=== PATIENT | male | born 1960 | race Hispanic/Latino ===

== ENCOUNTER 2018-03-09 10:56 | Emergency (ER) | payer MEDICAID ==
[2018-03-09 10:56] VITALS: BMI 21.1
[2018-03-09 11:11] VITALS: BP 144/83; PULSE 73; RESP 16; TEMP 97; O2SAT 98
--- NOTE | 2018-03-09 11:37 | ED PDOC ---
HPI: Influenza Time Seen by Provider: 03/09/18 11:14 Chief Complaint: Cough, Cold, Congestion History Per: Patient Additional complaint(s):: Pt. states for the past month he's had a persistent cough (non-productive). He was dx with pneumonia and dc'd from ED on 02/28/2018. States he was prescribed antibiotics but he did not take them as he lost the prescription. Denies chest pain, SOB, hemoptysis, sick contacts, recent travel, fever. Past Medical History Reviewed: Historical Data, Nursing Documentation, Vital Signs Vital Signs: Last Vital Signs Temp 97 F L 03/09/18 11:08 Pulse 73 03/09/18 11:08 Resp 16 03/09/18 11:08 BP 144/83 03/09/18 11:08 Pulse Ox 98 03/09/18 11:08 - Medical History PMH: Depression, Hypothyroidism, Pneumonia, Schizophrenia Denies: Diabetes, Hepatitis, HIV, HTN, Chronic Kidney Disease, Seizures, Sexually Transmitted Disease - Family History Family History: States: No Known Family Hx - Home Medications Home Medications: Ambulatory Orders Medication Instructions Recorded LORazepam [Ativan] 1 mg PO BID #28 tab 07/02/16 Levothyroxine [Synthroid] 25 mcg PO DAILY@0630 #14 tab 07/02/16 Risperidone [Risperdal] 3 mg PO BID #28 tablet 07/02/16 DiphenhydrAMINE [Benadryl] 25 mg PO ASDIR #1 packet 08/24/16 Hydrocortisone [Cortizone 2.5% 1 applic TOP TID #1 tube 08/24/16 CREAM] risperiDONE [RisperDAL Tab] 2 mg PO BID 30 Days #60 tab 03/02/17 Famotidine [Pepcid] 40 mg PO DAILY PRN #14 tab 05/27/17 Ondansetron ODT [Zofran ODT] 1 odt PO Q6 PRN #20 odt 05/27/17 Azithromycin [Zithromax] 250 mg PO DAILY #6 tab 02/28/18 Benzonatate 200 mg PO TID PRN #20 capsule 02/28/18 Azithromycin 250 mg PO DAILY #4 tablet 03/09/18 - Allergies Allergies/Adverse Reactions: Allergies Allergy/AdvReac Type Severity Reaction Status Date / Time No Known Allergies Allergy Verified 03/09/18 11:08 Review of Systems ROS Statement: Except As Marked, All Systems Reviewed And Found Negative Respiratory: Positive for: Cough Physical Exam - Physical Exam Appears: Positive for: Well, Non-toxic, No Acute Distress Skin: Positive for: Normal Color, Warm. Negative for: Rash Eye Exam: Positive for: Normal appearance ENT: Positive for: Normal ENT Inspection Cardiovascular/Chest: Positive for: Regular Rate, Rhythm. Negative for: Tachycardia Respiratory: Positive for: Normal Breath Sounds. Negative for: Respiratory Distress Gastrointestinal/Abdominal: Positive for: Normal Exam, Soft. Negative for: Tenderness Neurologic/Psych: Positive for: Alert, Oriented (x3), Gait (steady, unassisted). Negative for: Aphasia, Facial Droop - ECG O2 Sat by Pulse Oximetry: 98 - Progress ED Course And Treament: CXR: ROSALIO infiltrate as read by PA and Dr. Perez. Case d/w Dr. Perez who also reviewed labs and CXR from 02/28/2018 ED visit and agrees that pt. only requires PO abx at this time. Zithromax 500mg PO ordered. Pt. informed of plan and agrees with care. Verbalized understanding of plan and after 1st dose of zithromax today (given in ED) next time he is to take the zithromax is tomorrow. Also told to return to ED immediately if symptoms persist or worsen. Denies chest pain, SOB. Disposition - Clinical Impression Clinical Impression: Pneumonia - Patient ED Disposition Is Patient to be Admitted: No - Disposition Referrals: [facility] [Outside] [facility] [Outside] Disposition: Routine/Home Disposition Time: 12:15 Condition: STABLE Additional Instructions: FOLLOW UP WITH [facility] FOR FURTHER EVALUATION RETURN TO ED IMMEDIATELY IF SYMPTOMS WORSEN VIVIANA CHUNG, thank you for letting us take care of you today. Your provider was Veena Perez MD and you were treated for COUGH. The emergency medical care you received today was directed at your acute symptoms. If you were prescribed any medication, please fill it and take as directed. It may take several days for your symptoms to resolve. Return to the Emergency Department if your symptoms worsen, do not improve, or if you have any other problems. Please contact your doctor or call one of the physicians/clinics you have been referred to that are listed on the Patient Visit Information form that is included in your discharge packet. Bring any paperwork you were given at discharge with you along with any medications you are taking to your follow up visit. Our treatment cannot replace ongoing medical care by a primary care provider outside of the emergency department. Thank you for allowing the [facility] team to be part of your care today. If you had an X-Ray or CT scan: A Radiologist will review the ED reading if any change in treatment is needed we will contact you. If you had a blood, urine, or wound culture: It will take several days for the results, if any change in treatment is needed we will contact you. If you had an STI test: It will take 48 hours for the results. Please call after 1 week if you have not heard back. Prescriptions: Azithromycin 250 mg PO DAILY #4 tablet Instructions: Community-Acquired Pneumonia, Adult (DC) Forms: [facility] (Georgian) Print Language: URDU
--- NOTE | 2018-03-09 12:41 | RAD ---
Date of service: 03/09/2018 HISTORY: cough COMPARISON: 02/28/2018 TECHNIQUE: Chest PA and lateral FINDINGS: LUNGS: Improving left upper lobe opacity. No new infiltrate elsewhere. PLEURA: No significant pleural effusion identified. No pneumothorax apparent. CARDIOVASCULAR: No aortic atherosclerotic calcification present. Normal cardiac size. No pulmonary vascular congestion. OSSEOUS STRUCTURES: No significant abnormalities. VISUALIZED UPPER ABDOMEN: Normal. OTHER FINDINGS: None. IMPRESSION: Improving left upper lobe infiltrate. Follow-up to clearing advised to exclude underlying neoplasm.
== END 2018-03-09 12:43 | disposition home or self-care (01) ==
LOC: H.ER 10:56
DX: J18.9 Pneumonia, unspecified organism (principal); E03.9 Hypothyroidism, unspecified